=== PATIENT | female | born 1995 | race Caucasian/White ===

== ENCOUNTER 2024-08-17 00:39 | Emergency (ER) | payer OTHER ==
[~2024-08-17] VITALS: Ht 157.5 cm; Wt 77.0 kg
[2024-08-17 01:01] VITALS: O2SAT 99
[2024-08-17] MEDS: LIDOCAINE 5% PATCH TOP SCH (01:57)
[2024-08-17] MEDS: ACETAMINOPHEN 325MG TABLET PO ONE (01:59)
[2024-08-17] MEDS ORDERED: ACET-2708 MT (02:54)
[2024-08-17 03:04] VITALS: BP 101/71; PULSE 82; RESP 14; TEMP 36.6; O2SAT 97
== END 2024-08-17 03:13 | disposition home or self-care (01) ==
LOC: ER 00:39
DX: S43.401A Unspecified sprain of right shoulder joint, initial encounter (principal); M79.10 Myalgia, unspecified site; M25.511 Pain in right shoulder; W18.39XA Other fall on same level, initial encounter; Y93.62 Activity, american flag or touch football; Y92.89 Other specified places as the place of occurrence of the external cause; Y99.8 Other external cause status
CPT/HCPCS: 73030; 73060; 99284; A4565